=== PATIENT | female | born 1980 | race African-American/Black ===

== ENCOUNTER 2017-05-28 14:32 | Emergency (ER) | payer OTHER, MEDICAID ==
[~2017-05-28] VITALS: Ht 175.3 cm; Wt 90.7 kg
[~2017-05-28 14:32] MED LIST: PREN1TAB49 PO
[2017-05-28 15:13] VITALS: BP_SYST 121
--- NOTE | 2017-05-28 16:47 | NUR ---
Patient to ER bed 02 to gown for evaluation. Side rails up. Report given to
--- NOTE | 2017-05-28 16:57 | NUR ---
Patient to ED for eval of back pain, awaiting evaluation by ER MD. Patient able to ambulate without difficulty to [place] [facility]
--- NOTE | 2017-05-28 18:32 | NUR ---
ER Dr. Maddox at bedside examining patient.
[2017-05-28] MEDS ORDERED: HYDROmorphone 1 MG INJ. 1 MG/ML AMPUL IVP ONE (18:45)
[2017-05-28] MEDS ORDERED: NS 500 ML IV ONE (18:45)
[2017-05-28] MEDS ORDERED: ONDANSETRON HCL 4 MG/2 ML VIAL IVP ONE (18:45)
--- NOTE | 2017-05-28 20:00 | NUR ---
Patient given written and verbal discharge instructions and verbalizes understanding. ER MD discussed with patient the results and treatment provided. Patient in stable condition. ID arm band removed. IV catheter removed intact and dressing applied, no active bleeding. Rx of Flexeril, Tylenol with Codeine given. Patient educated on pain management and to follow up with PMD. Pain Scale 4. Opportunity for questions provided and answered.
[2017-05-28 20:30] VITALS: BP_SYST 120
== END 2017-05-28 20:30 | disposition home or self-care (01) ==
LOC: SED 14:32
DX: S33.5XXA Sprain of ligaments of lumbar spine, initial encounter (principal); X58.XXXA Exposure to other specified factors, initial encounter; Y93.E2 Activity, laundry; Y92.89 Other specified places as the place of occurrence of the external cause; Y99.8 Other external cause status
CPT/HCPCS: 96361; 96374; 96375; 99284; J1170; J2405; J7040; J7030

== ENCOUNTER 2017-09-06 10:34 | Emergency (ER) | payer OTHER, MEDICAID ==
[~2017-09-06] VITALS: Ht 177.8 cm; Wt 94.3 kg
[2017-09-06 10:40] VITALS: BP_SYST 139
[2017-09-06] MEDS ORDERED: KETOROLAC TROMETHAMINE 60 MG/2 ML VIAL IM ONE (11:15)
[2017-09-06 11:24] LABS: BILIRUBIN,URINE NEGATIVE (NEGATIVE); BLOOD, URINE NEGATIVE (NEGATIVE); CLARITY/URINE CLEAR (CLEAR); COLOR,URINE YELLOW (YELLOW); GLUCOSE,URINE NEGATIVE (NEGATIVE); KETONES,URINE NEGATIVE (NEGATIVE); LEUKOCYTE ESTERASE ,URINE NEGATIVE (NEGATIVE); NITRITE, URINE NEGATIVE (NEGATIVE); PROTEIN URINE NEGATIVE (NEGATIVE)
[2017-09-06 13:30] VITALS: BP_SYST 128
== END 2017-09-06 12:43 | disposition home or self-care (01) ==
LOC: SED 10:34
DX: M54.5 Low back pain (principal); R03.0 Elevated blood-pressure reading, without diagnosis of hypertension
CPT/HCPCS: 72100; 81003; 81025; 96372; 99285; J1885

== ENCOUNTER 2021-07-15 04:42 | Emergency (ER) | payer MEDICAID, OTHER ==
[~2021-07-15] VITALS: Ht 177.8 cm; Wt 102.1 kg
--- NOTE | 2021-07-15 04:49 | NUR ---
Patient to ER bed 2.
[2021-07-15 04:50] VITALS: BP_SYST 153
--- NOTE | 2021-07-15 04:50 | NUR ---
Patient BIB by family from home. C/O right finger laceration x today. Patient reported, accidently cut herself by picture frame. A/O,X4, right 5 th finger laceration, bleeding control.
--- NOTE | 2021-07-15 04:58 | NUR ---
ER Dr. Andres at bedside examining patient.
[2021-07-15] MEDS ORDERED: DIPH-TET-PERTUS Vaccine 0.5 ML VIAL (ADACEL) I.M. ONE (05:15)
--- NOTE | 2021-07-15 05:26 | NUR ---
Clean wound with NSS , Patient tolerated well.
[2021-07-15 05:45] VITALS: BP_SYST 153
--- NOTE | 2021-07-15 05:45 | NUR ---
Patient given written and verbal discharge instructions and verbalizes understanding. ER MD discussed with patient the results and treatment provided. Patient in stable condition. ID arm band removed. No Rx given. Patient educated on pain management and to follow up with PMD. Pain Scale 1/10. Opportunity for questions provided and answered.
== END 2021-07-15 05:45 | disposition home or self-care (01) ==
LOC: SED 04:42
DX: S61.216A Laceration without foreign body of right little finger without damage to nail, initial encounter (principal); Z79.899 Other long term (current) drug therapy; W45.8XXA Other foreign body or object entering through skin, initial encounter; Y93.89 Activity, other specified; Y92.89 Other specified places as the place of occurrence of the external cause; Y99.8 Other external cause status
CPT/HCPCS: 90715; 99283